=== PATIENT | male | born 1980 ===

== ENCOUNTER → 2022-08-22 | Outpatient (CLI) | payer SELFPAY | END | disposition home or self-care (01) | LOC: LAB SHORT 08:12 → LAB 08:12 | DX: K21.9 Gastro-esophageal reflux disease without esophagitis (principal) | CPT/HCPCS: 87338 ==

== ENCOUNTER 2023-01-18 10:19 | Day surgery (SDC) | payer OTHER ==
[~2023-01-18] VITALS: Ht 165.1 cm; Wt 81.5 kg
[2023-01-18] MEDS ORDERED: CARAFATE1 GM/10 M1 (10:33)
[2023-01-18] MEDS ORDERED: OMEP20ER (10:33)
== END 2023-01-18 12:13 | disposition home or self-care (01) ==
LOC: ORSCSDS 10:19
DX: K21.9 Gastro-esophageal reflux disease without esophagitis (principal); K31.7 Polyp of stomach and duodenum; Z79.899 Other long term (current) drug therapy
CPT/HCPCS: J2704; J7120